=== PATIENT | male | born 1955 | race Caucasian/White ===

== ENCOUNTER 2016-10-15 10:44 | Day surgery (SDC) | payer BC, MEDICARE ==
[2016-10-10 13:15] LABS: HEMATOCRIT 45.4 % (40.0-51.0); HEMOGLOBIN 14.4 g/dL (13.6-17.8)
[2016-10-10 13:26] LABS: BUN (BLOOD UREA NITROGEN) 15 MG/DL (6-23); CALCIUM, SERUM 9.1 MG/DL (8.5-10.4); CHLORIDE, SERUM 106 MMOL/L (96-112); CO2 (CARBON DIOXIDE) 30 MMOL/L (24-34); CREATININE 0.91 MG/DL (0.70-1.30); GFR AFRICAN AMERICAN 106 ML/MIN (>=60); GFR NON AFRICAN AMERICAN 91 ML/MIN (>=60); GLUCOSE, SERUM 92 MG/DL (60-99); POTASSIUM, SERUM 4.2 MMOL/L (3.5-5.3); SODIUM, SERUM 141 MMOL/L (135-148)
--- NOTE | ~2016-10-15 | OP ---
Record Of Operation [facility] [address] [place]. [address] NAME: ADALBERTO DUNHAM : 57 STATUS : [place] [facility] [place] PAT#: [id number] AGE: 61 ADM/REG DATE : 10/15/16 MR#: [id number] REPORT SERV DATE: 10/15/16 DICTATED BY: HEATHER GROVER DATE: 10/15/16 REPORT STATUS : Draft TRANSCRIBED BY: MODL DATE: 10/15/16 DATE OF PROCEDURE: 10/15/2016 PREOPERATIVE DIAGNOSES: 1. Recurrent left carpal tunnel syndrome. 2. Left ulnar tunnel syndrome (compression of the ulnar nerve at the wrist). 3. Left cubital tunnel syndrome. PROCEDURES: 1. Repeat left carpal tunnel release. 2. Left ulnar tunnel release. 3. Left cubital tunnel in situ release. SURGEON: Heather Grover M.D. [employer]TAIN RO[employer] SERVICE: Fide Rehman. ANESTHESIA: General. ESTIMATED BLOOD LOSS: 5 mL. COMPLICATIONS: None. DISPOSITION: The patient tolerated the procedure well and was brought to recovery room in stable condition. PROCEDURE NOTE: The patient was brought to the operating room and placed in supine position. After general anesthesia was administered, a pneumatic tourniquet was placed around the left proximal arm. The left upper extremity distal to the tourniquet was prepped and draped in the usual sterile manner. A surgical timeout was performed and all were in agreement. An Esmarch was then used to exsanguinate the extremity and tourniquet was inflated. Ulnar tunnel release were carried out through a single incision. A 15-blade scalpel was used to make a zigzag incision overlying Guyon's canal proximal to the volar wrist crease and at the level of the volar wrist crease, the incision was more midline in line with the ring finger. The incision was then directed distally in one of the palmar thenar creases and then directed ulnarly until the proximal palmar crease was reached. Through this incision, blunt and sharp dissection was carried out and the fascial bands overlying Guyon's canal were released. The ulnar nerve and artery as well as it's veins were traced from zones 1, 2, 3, and decompressed in this region. After adequate decompression, the wound was irrigated, and attention was then directed to the carpal tunnel release. Carpal tunnel release was carried out by taking a 15-blade scalpel making a longitudinal incision across the entire transverse carpal ligament just radial to the hook of the hamate. After adequate decompression was noted, the wound was irrigated, and skin was closed with deep and running Monocryl suture. Record Of Operation [facility] [address] [place]. [address] NAME: ADALBERTO DUNHAM : 57 STATUS : [facility] [place] PAT#: [id number] AGE: 61 ADM/REG DATE : 10/15/16 MR#: [id number] REPORT SERV DATE: 10/15/16 DICTATED BY: HEATHER GROVER DATE: 10/15/16 REPORT STATUS : Draft TRANSCRIBED BY: MARGARITO DATE: 10/15/16 Cubital tunnel release was carried out by taking a 15-blade scalpel and making a 5 to 6 cm longitudinal incision centered over the cubital tunnel which was approximately 2 cm posterior to the medial epicondyle. After the skin was incised, blunt and sharp dissection was carried out taking care to protect superficial nerves in that area. The cubital tunnel retinaculum was identified and carefully incised taking care to protect the underlying ulnar nerve. More proximally, a portion of the intermuscular septum and superficial fascia of the arm were divided and more distally the confluence of the two heads of the FCU were divided. In doing so, the ulnar nerve appeared well decompressed in the region. The wound was irrigated and skin was closed in a similar manner with deep and running 3-0 Monocryl suture. Steri-Strips were applied to each surgical site. Afterwards, 0.5% Marcaine plain was injected into the each site (total 10 mL) to provide adequate local block. A sterile dressing and sling were applied. Tourniquet was released and the patient's arm was placed in a sling, and the patient was brought to recovery room in stable condition. FCO/MARGARITO Heather Grover M.D. / [id number] CC: Lesli Lr M.D.
[~2016-10-15 10:44] MED LIST: ASABAYER PO; DITROPAN XL15 MG PO; GLUCPH PO; JANUVIA100 MG PO; L20 PO; NO DAILY MEDS; TAGAMET 200 MG200 MG PO; TRAZ100 PO; TRIAMCINOLONE O80 GM TOP; TRINTELLIX10 MG PO; VIIBRYD40 MG PO; VITAMIN B-121000 MC1 SL; VITAMIN D31000 UNIT PO; WELLXL150 PO
== END 2016-10-15 16:44 | disposition home or self-care (01) ==
LOC: SDC 10:44
PROVIDERS: Orthopaedic Surgery Hand Surgery
PROC: 01N50ZZ Release Median Nerve, Open Approach (ICD-10-PCS; principal; 2016-10-15 12:45)
PROC: 01N40ZZ Release Ulnar Nerve, Open Approach (ICD-10-PCS; 2016-10-15 12:45)
DX: G56.02 Carpal tunnel syndrome, left upper limb (principal); G56.22 Lesion of ulnar nerve, left upper limb; I87.2 Venous insufficiency (chronic) (peripheral); E11.9 Type 2 diabetes mellitus without complications; F32.9 Major depressive disorder, single episode, unspecified; F41.9 Anxiety disorder, unspecified; K21.9 Gastro-esophageal reflux disease without esophagitis; M19.90 Unspecified osteoarthritis, unspecified site; M51.26 Other intervertebral disc displacement, lumbar region; G47.33 Obstructive sleep apnea (adult) (pediatric); H91.90 Unspecified hearing loss, unspecified ear; E66.01 Morbid (severe) obesity due to excess calories; Z68.42 Body mass index [BMI] 45.0-49.9, adult; Z96.652 Presence of left artificial knee joint; Z96.1 Presence of intraocular lens; Z98.42 Cataract extraction status, left eye; Z86.711 Personal history of pulmonary embolism; Z90.49 Acquired absence of other specified parts of digestive tract; Z79.84 Long term (current) use of oral hypoglycemic drugs; Z79.899 Other long term (current) drug therapy; Z98.890 Other specified postprocedural states
CPT/HCPCS: 80048; 82962; 85014; 85018; 93005; J0690; J1885; J2250; J2405; J2550; J3010